=== PATIENT | male | born 1990 | race Asian ===

== ENCOUNTER 2019-02-27 09:01 | Emergency (ER) | payer OTHER ==
--- NOTE | 2019-02-27 10:02 | UC ---
Back Pain HPI - HPI Summary HPI Summary: 29-year-old male comes in with a chief complaint of low back pain. Started with some low back pain about a week ago. Yesterday he played badWhenSoon the pain got a lot worse. Pain is in the low back it does radiate a little bit to the right side but does not could on the buttocks or into either leg. No weakness no numbness no difficulty controlling urine or bowels. Pain is worse with twisting turning and bending. Extension is less painful. Flexion of the back is most painful maneuver. Patient is not tried any pain medications. Denies any abdominal pain or chest pain or shortness of breath. No urinary symptoms. - History of Current Complaint Chief Complaint: UCBackPain Stated Complaint: LOWER BACK INJURY Time Seen by Provider: 02/27/19 09:48 Pain Intensity: 8 - Allergies/Home Medications Allergies/Adverse Reactions: Allergies Allergy/AdvReac Type Severity Reaction Status Date / Time No Known Allergies Allergy Verified 02/27/19 09:20 PMH/Surg Hx/FS Hx/Imm Hx Previously Healthy: Yes - Surgical History Surgical History: None - Family History Known Family History: Positive: Non-Contributory - Social History Alcohol Use: None Substance Use Type: None Smoking Status (MU): Never Smoked Tobacco Review of Systems All Other Systems Reviewed And Are Negative: Yes Constitutional: Positive: Negative Skin: Positive: Negative Eyes: Positive: Negative ENT: Positive: Negative Respiratory: Positive: Negative Cardiovascular: Positive: Negative Gastrointestinal: Positive: Negative Genitourinary: Positive: Negative Motor: Positive: Other - SEE HPI Neurovascular: Positive: Negative Musculoskeletal: Positive: Other: - SEE HPI Neurological: Positive: Negative Psychological: Positive: Negative Is Patient Immunocompromised?: No Physical Exam Triage Information Reviewed: Yes Appearance: Well-Appearing, Well-Nourished, Pain Distress - MILD WITH BACK ROM Vital Signs: Initial Vital Signs Temp 97.5 F 02/27/19 09:18 Pulse 84 02/27/19 09:18 Resp 16 02/27/19 09:18 BP 96/69 02/27/19 09:18 Pulse Ox 97 02/27/19 09:18 Vital Signs Reviewed: Yes Eye Exam: Normal Eyes: Positive: Conjunctiva Clear Neck: Positive: Supple Respiratory: Positive: Lungs clear, Normal breath sounds, No respiratory distress Cardiovascular: Positive: RRR Musculoskeletal: Positive: Strength Intact, Other: - Low back is tender to palpation to include slightly to the right over the right SI joint. There is no tenderness down into the buttock and the sciatic distribution. Both legs have full range of motion full-strength. No sensation deficit. Neurological: Positive: Alert Psychological: Positive: Age Appropriate Behavior Skin Exam: Normal Back Pain Course/Dx - Course Course Of Treatment: Plan will be [id number] lidocaine patch and ibuprofen. Also discussed stretching and range of motion. Wrote a prescription for Flexeril to be used as needed I did let him know that I will make him tired to not drive with it. No neurologic deficit or radicular symptoms today. Patient will follow-up with regular doctor if not improved and get checked again sooner if worse or any questions or concerns. - Differential Dx/Diagnosis Provider Diagnosis: Low back pain Discharge - Sign-Out/Discharge Documenting (check all that apply): Patient Departure All imaging exams completed and their final reports reviewed: No Studies - Discharge Plan Condition: Stable Disposition: HOME Prescriptions: Cyclobenzaprine TAB* [Flexeril 10 MG TAB*] 10 mg PO TID PRN #10 tab MDD 3 PRN Reason: Pain Ibuprofen TAB* [Motrin TAB* 600 MG] 600 mg PO Q6H PRN #20 tab PRN Reason: Pain Patient Education Materials: Acute Low Back Pain (ED), Lower Back Exercises (ED ) Referrals: [facility] [Provider Group] [facility] [Outside] Additional Instructions: FOLLOW UP WITH YOUR DOCTOR IF NOT COMPLETELY IMPROVED. TAKE IBUPROFEN 600MG EVERY 6 HOURS NEEDED. TAKE FLEXERIL 10MG EVERY 8 HOURS NEEDED; THE FLEXERIL WILL MAKE YOU SLEEPY SO , DO NOT USE WHILE DRIVING. TRY LIDOCAINE 4% PATCHES IF HELPFUL. GET RECHECKED SOONER IF YOUR CONDITION WORSENS; PAIN, WEAKNESS, NUMBNESS, DIFFICULTY CONTROLLING BOWEL OR BLADDER OR ANY QUESTIONS OR CONCERNS. - Billing Disposition and Condition Condition: STABLE Disposition: Home
== END 2019-02-27 10:05 | disposition home or self-care (01) ==
LOC: UCEAST 09:01
DX: M54.5 Low back pain (principal)
CPT/HCPCS: 99202; G0463

== ENCOUNTER 2019-03-25 19:50 | Emergency (ER) | payer OTHER ==
--- NOTE | 2019-03-25 20:22 | ED ---
GI/ HPI - HPI Summary HPI Summary: Patient complains of concern for exposure to HIV. Patient states he had sex with that strange female yesterday, and then afterwards noticed that his gums started bleeding while brushing his teeth. Concerned that he may have been bleeding while kissing. Admits to protected vaginal intercourse. Unknown if partner has HIV or not. Denies any pain, injury or symptoms. Medical history is none. - History of Current Complaint Chief Complaint: EDExposureBodyFluid Time Seen by Provider: 03/25/19 20:21 Stated Complaint: POSS EXPOSURE TO HIV PER PT Hx Obtained From: Patient Onset/Duration: Started Hours Ago Current Severity: None Pain Intensity: 0 Associated Signs and Symptoms: Positive: Negative Aggravating Factor(s): Nothing - Allergy/Home Medications Allergies/Adverse Reactions: Allergies Allergy/AdvReac Type Severity Reaction Status Date / Time No Known Allergies Allergy Verified 03/25/19 19:53 PMH/Surg Hx/FS Hx/Imm Hx Endocrine/Hematology History: Denies: Hx Anticoagulant Therapy Cardiovascular History: Denies: Hx Pacemaker/ICD History: Denies: Hx Dialysis Sensory History: Denies: Hx Eye Prosthesis Opthamlomology History: Denies: Hx Legally Blind EENT History: Denies: Hx Deafness Infectious Disease History: No Infectious Disease History: Reports: Traveled Outside the [place] in Last 30 Days - [place] - Family History Known Family History: Positive: Non-Contributory - Social History Alcohol Use: None Substance Use Type: Reports: None Smoking Status (MU): Never Smoked Tobacco Review of Systems Constitutional: Negative Eyes: Negative ENT: Negative Cardiovascular: Negative Respiratory: Negative Gastrointestinal: Negative Genitourinary: Negative Musculoskeletal: Negative Skin: Negative Neurological: Negative Psychological: Normal All Other Systems Reviewed And Are Negative: Yes Physical Exam Triage Information Reviewed: Yes Vital Signs On Initial Exam: Initial Vitals Temp Pulse Resp BP Pulse Ox 98.4 F 66 15 122/85 98 03/25/19 19:52 03/25/19 19:52 03/25/19 19:52 03/25/19 19:52 03/25/19 19:52 Vital Signs Reviewed: Yes Appearance: Positive: Well-Appearing Skin: Positive: Warm Head/Face: Positive: Normal Head/Face Inspection Eyes: Positive: Normal ENT: Positive: Normal ENT inspection Neck: Positive: Supple Respiratory/Lung Sounds: Positive: Clear to Auscultation Cardiovascular: Positive: Normal Abdomen Description: Positive: Nontender Musculoskeletal: Positive: Normal Neurological: Positive: Normal Psychiatric: Positive: Normal AVPU Assessment: Alert - Cindy Coma Scale Best Eye Response: 4 - Spontaneous Best Motor Response: 6 - Obeys Commands Best Verbal Response: 5 - Oriented Coma Scale Total: 15 Diagnostics - Vital Signs Vital Signs Temp Pulse Resp BP Pulse Ox 03/25/19 19:52 98.4 F 66 15 122/85 98 - Laboratory Lab Statement: Any lab studies that have been ordered have been reviewed, and results considered in the medical decision making process. GIGU Course/Dx - Course Course Of Treatment: Patient complains of concern for exposure to HIV. Patient states he had sex with that strange female yesterday, and then afterwards noticed that his gums started bleeding while brushing his teeth. Concerned that he may have been bleeding while kissing. Admits to protected vaginal intercourse. Unknown if partner has HIV or not. Denies any pain, injury or symptoms. Medical history is none. Vital signs within normal limits. Patient advised protected sex with heterosexual partner involving vaginal intercourse is low risk for infection. Kissing is not a likely source of transmission.. Patient refused HIV testing at this time. Advised to follow-up with [facility] and infectious disease. Patient understands and approves of plan. - Diagnoses Provider Diagnoses: Concern about sexually transmitted disease in male without diagnosis Discharge - Sign-Out/Discharge Documenting (check all that apply): Patient Departure Patient Received Moderate/Deep Sedation with Procedure: No - Discharge Plan Condition: Stable Disposition: HOME Patient Education Materials: HIV Transmission (ED) Referrals: No Primary Care Phys,[facility] [Primary Care Provider] - Brianna WALDEN,Driss Zarate [Medical Doctor] - Additional Instructions: You may call [facility] Department at [phone] for further information on HIV transmission. You may also call infectious disease Dr. Reed for further information. - Billing Disposition and Condition Condition: STABLE Disposition: Home
[2019-03-25 21:17] VITALS: BP 113/66
== END 2019-03-25 21:16 | disposition home or self-care (01) ==
LOC: ED 19:50
DX: Z20.6 Contact with and (suspected) exposure to human immunodeficiency virus [HIV] (principal); K06.8 Other specified disorders of gingiva and edentulous alveolar ridge
CPT/HCPCS: 99281

== ENCOUNTER 2019-04-10 14:11 | Emergency (ER) | payer OTHER ==
[2019-04-10 15:05] LABS: Rapid Strep Molecular Negative (Negative)
[2019-04-10] MEDS: Dexamethasone TAB* 4 MG PO ONE (16:12)
--- NOTE | 2019-04-10 16:29 | ED ---
Respiratory - HPI Summary HPI Summary: The patient is a 29 y/o M presenting to [facility] with a chief complaint of difficulty breathing and wheezing this morning. He reports that over the past two weeks, he's had flu-like symptoms that resolved but seem to be returning as he woke up this morning and had trouble breathing normally and could hear himself wheezing. He additionally c/o generalized body aches and a headache. He denies any fever, rhinorrhea, sore throat, nausea, vomiting, or diarrhea. Currently, his symptoms are rated 3/10 in severity. He states he had asthma as a child but usually doesn't have symptoms now, and he doesn't have an inhaler at home. PMHx: asthma, seasonal allergies. Nonsmoker, rare EtOH, no substance use. Medications reviewed. Allergies noted. - History of Current Complaint Chief Complaint: EDThroatPain Stated Complaint: GENERAL ILLNESS PER PT Time Seen by Provider: 04/10/19 15:33 Hx Obtained From: Patient Onset/Duration: Lasting Weeks - resolved until this morning, Still Present Initial Severity: Mild Current Severity: Moderate Pain Intensity: 3 Character: Wheezing, Dyspnea at Rest Sputum Amount: None Aggravating Factor(s): Nothing Alleviating Factor(s): Nothing Associated Signs and Symptoms: Wheezing - Allergy/Home Medications Allergies/Adverse Reactions: Allergies Allergy/AdvReac Type Severity Reaction Status Date / Time No Known Allergies Allergy Verified 03/25/19 19:53 PMH/Surg Hx/FS Hx/Imm Hx Endocrine/Hematology History: Denies: Hx Anticoagulant Therapy Cardiovascular History: Denies: Hx Pacemaker/ICD Respiratory History: Reports: Hx Asthma History: Denies: Hx Dialysis Sensory History: Denies: Hx Eye Prosthesis - when child, Hx Legally Blind, Hx Deafness Opthamlomology History: Reports: Hx Contacts or Glasses Denies: Hx Eye Prosthesis, Hx Legally Blind EENT History: Denies: Hx Deafness - Surgical History Surgical History: None Surgery Procedure, Year, and Place: none Infectious Disease History: No Infectious Disease History: Reports: Traveled Outside the [place] in Last 30 Days - Family History Known Family History: Negative: Hypertension, Non-Contributory - Social History Alcohol Use: Rare Hx Substance Use: No Substance Use Type: Reports: None Hx Tobacco Use: No Smoking Status (MU): Never Smoked Tobacco Review of Systems Positive: Other - general body aches. Negative: Fever Negative: Sore Throat, Nasal Discharge Positive: Other - difficulty breathing, wheezing Negative: Vomiting, Diarrhea, Nausea Positive: Headache All Other Systems Reviewed And Are Negative: Yes Physical Exam - Summary Physical Exam Summary: Constitutional: Well-developed, Well-nourished, Alert. (-) Distressed Skin: Warm, Dry HENT: No pharyngeal erythema, No exudate, Normocephalic; Atraumatic Eyes: Conjunctiva normal Neck: Musculoskeletal ROM normal neck. (-) JVD, (-) Stridor, (-) Tracheal deviation Cardio: Rhythm regular, rate normal, Heart sounds normal; Intact distal pulses; The pedal pulses are 2+ and symmetric. Radial pulses are 2+ and symmetric. (-) Murmur Pulmonary/Chest wall: Effort normal. (-) Respiratory distress, (-) Wheezes, (-) Rales Abd: Soft, (-) tenderness, (-) Distension, (-) Guarding, (-) Rebound Musculoskeletal: (-) Edema Lymph: (-) Cervical adenopathy Neuro: Alert, Oriented x3 Psych: Mood and affect Normal Triage Information Reviewed: Yes Vital Signs On Initial Exam: Initial Vitals Temp Pulse Resp BP Pulse Ox 97.7 F 83 18 135/71 98 04/10/19 14:26 04/10/19 14:26 04/10/19 14:26 04/10/19 14:26 04/10/19 14:26 Vital Signs Reviewed: Yes Diagnostics - Vital Signs Vital Signs Temp Pulse Resp BP Pulse Ox 04/10/19 14:26 97.7 F 83 18 135/71 98 - Laboratory Lab Results: Lab Results 04/10/19 Range/Units 14:29 Group A Strep Rapid Negative (Negative) Lab Statement: Any lab studies that have been ordered have been reviewed, and results considered in the medical decision making process. - Radiology CXR Radiology Interpretation Completed By: Radiologist Summary of Radiographic Findings: Impression: No active cardiopulmonary disease. ED physician has reviewed this radiology report. Re-Evaluation - Re-Evaluation First Eval Re-Evaluation Time: 16:40 Comment: We discussed discharge home. Disposition - Course Course Of Treatment: Patient is here with mild cough and sore throat. On arrival, patient is overall well-appearing with a normal exam. Given patient's duration of symptoms, a chest x-ray was performed which was negative. Patient is given a dose of steroids here. Patient was discharged on an albuterol inhaler. - Diagnoses Provider Diagnoses: Wheezing, Sore throat Discharge ED - Sign-Out/Discharge Documenting (check all that apply): Patient Departure - Patient will be discharged home. Patient Received Moderate/Deep Sedation with Procedure: No - Discharge Plan Condition: Stable Disposition: HOME Prescriptions: Albuterol HFA INHALER* [Ventolin HFA Inhaler*] 4 - 6 puff INH Q4H PRN #1 mdi PRN Reason: Wheezing Patient Education Materials: Pharyngitis (ED), Wheezing (ED) Referrals: [facility] [Outside] - 2 Days Additional Instructions: Use your inhaler as prescribed. Follow up with your primary care provider in 2- 3 days. Return to the emergency department for any new or worsening symptoms. - Billing Disposition and Condition Condition: STABLE Disposition: Home - Attestation Statements Document Initiated by Jimena: Yes Documenting Scribe: Leslye Harden Provider For Whom Jimena is Documenting (Include Credential): Dr. Omar Nguyen MD Scribe Attestation: Leslye Durán scribed for Dr. Omar Nguyen MD on 04/12/19 at 1056. Scribe Documentation Reviewed: Yes Provider Attestation: The documentation as recorded by the Leslye ch accurately reflects the service I personally performed and the decisions made by me, Dr. Omar Nguyen MD Status of Scribwilfredo Document: Viewed
[2019-04-10 16:59] VITALS: BP 112/55
== END 2019-04-10 16:45 | disposition home or self-care (01) ==
LOC: ED 14:11
DX: J02.9 Acute pharyngitis, unspecified (principal); R06.2 Wheezing
CPT/HCPCS: 71046; 87651; 99282; J8540

== ENCOUNTER 2019-04-13 02:30 | Emergency (ER) | payer OTHER ==
[2019-04-13] MEDS ORDERED: Baclofen TAB* 20 MG PO ONE (02:46)
[2019-04-13] MEDS ORDERED: Simethicone TAB* 80 MG TAB.CHEW PO ONE (02:46)
--- NOTE | 2019-04-13 02:59 | ED ---
GI/ HPI - HPI Summary HPI Summary: The pt is a 29 yr old male presenting [facility] c/o burping and hiccupping beginning 2 days [facility] [facility]. He has been burping frequently for the past 2 days in intermittent episodes that last 1-2 hours. 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 He notes that he has taken antacids for the burping earlier. Pain severity is rated 0/10. No aggravating or alleviating factors noted. He denies any CP. - History of Current Complaint Chief Complaint: EDGeneral Stated Complaint: KEEP BURPING AFTER TAKING MEDICATION PER PT Hx Obtained From: Patient Onset/Duration: Started Days Ago, Still Present Timing: Intermittent, Lasting Hours - 1-2, Lasting Days Severity: Mild Current Severity: None Pain Intensity: 0 Associated Signs and Symptoms: Positive: Other: - pos - burping/hiccuping. Negative: Chest Pain - Allergy/Home Medications Allergies/Adverse Reactions: Allergies Allergy/AdvReac Type Severity Reaction Status Date / Time No Known Allergies Allergy Verified 03/25/19 19:53 PMH/Surg Hx/FS Hx/Imm Hx Endocrine/Hematology History: Denies: Hx Anticoagulant Therapy Cardiovascular History: Denies: Hx Pacemaker/ICD Respiratory History: Reports: Hx Asthma History: Denies: Hx Dialysis Sensory History: Reports: Hx Contacts or Glasses Denies: Hx Eye Prosthesis, Hx Legally Blind, Hx Deafness Opthamlomology History: Reports: Hx Contacts or Glasses Denies: Hx Eye Prosthesis, Hx Legally Blind - Surgical History Surgical History: None Surgery Procedure, Year, and Place: none Infectious Disease History: No Infectious Disease History: Reports: Traveled Outside the [place] in Last [place] Days - [place] - Family History Known Family History: Negative: Hypertension - Social History Alcohol Use: Rare Hx Substance Use: No Substance Use Type: Reports: None Hx Tobacco Use: No Smoking Status (MU): Never Smoked Tobacco Review of Systems Negative: Chest Pain Gastrointestinal: Other - pos - burping/hiccuping All Other Systems Reviewed And Are Negative: Yes Physical Exam - Summary Physical Exam Summary: Appearance: Well-appearing, Well-nourished, lying in bed comfortably Skin: Warm, dry, no obvious rash Eyes: sclera anicteric, no conjunctival pallor ENT: mucous membranes moist, pharynx appears normal Neck: Supple, nontender Respiratory: Clear to auscultation, no signs of respiratory distress Cardiovascular: Normal S1, S2. No murmurs. Normal distal pulses in tibial and radial bilaterally. Abdomen: Soft, nontender, normal active bowel sounds present Musculoskeletal: Normal, Strength/ROM Intact Neurological: A&Ox3, awake and alert, mentation is normal, speech is fluent and appropriate Psychiatric: affect is normal, does not appear anxious or depressed Triage Information Reviewed: Yes Vital Signs On Initial Exam: Initial Vitals Temp Pulse Resp BP Pulse Ox 97.9 F 62 18 117/88 98 04/13/19 02:34 04/13/19 02:34 04/13/19 02:34 04/13/19 02:34 04/13/19 02:34 Vital Signs Reviewed: Yes Diagnostics - Vital Signs Vital Signs Temp Pulse Resp BP Pulse Ox 04/13/19 02:34 97.9 F 62 18 117/88 98 - Laboratory Lab Statement: Any lab studies that have been ordered have been reviewed, and results considered in the medical decision making process. Re-Evaluation - Re-Evaluation First Eval Re-Evaluation Time: 04:04 Change: Improved Comment: Pt is feeling better, discharged discussed. GIGU Course/Dx - Course Course Of Treatment: The pt is a 29 yr old male presenting to [facility] c/o burping and hiccupping beginning today. He also denies CP. On review of chart patient was given decadron for his wheezing on prior visit, this medication is known to occasional cause hiccups. No test or imaging results to report. In the ED course pt was given 20 mg Lioresal PO and 80 mg Mylicon PO. Final Dx is hiccups. Pt will be discharged home with PCP follow up. Pt is agreeable with this plan. - Diagnoses Provider Diagnoses: Hiccup Discharge ED - Sign-Out/Discharge Documenting (check all that apply): Patient Departure - discharge Patient Received Moderate/Deep Sedation with Procedure: No - Discharge Plan Condition: Stable Disposition: HOME Prescriptions: Baclofen TAB* [Lioresal TAB*] 20 mg PO TID PRN #8 tab PRN Reason: Hiccups Patient Education Materials: Hiccups (ED) Referrals: No Primary Care Phys,[facility] [Primary Care Provider] - Additional Instructions: You are likely correct about the steroid medication triggering the hiccups. If you need a steroid for anything in the future, ask whoever prescribes it for you to avoid decadron. The hiccups should go away once the medication gets out of your system. - Billing Disposition and Condition Condition: STABLE Disposition: Home - Attestation Statements Document Initiated by Jimena: Yes Documenting Scribe: Richmond Sheets Provider For Whom Jimena is Documenting (Include Credential): Leodan Mason MD Scribe Attestation: IRichmond, scribed for Leodan Mason MD on 04/13/19 at 2058. Scribe Documentation Reviewed: Yes Provider Attestation: The documentation as recorded by the Richmond ch accurately reflects the service I personally performed and the decisions made by me, Leodan Mason MD Status of Scr[place] Document: Viewed
[2019-04-13 04:33] VITALS: BP 98/58
== END 2019-04-13 04:29 | disposition home or self-care (01) ==
LOC: ED 02:30
DX: T78.2XXA Anaphylactic shock, unspecified, initial encounter (principal); F17.210 Nicotine dependence, cigarettes, uncomplicated; K21.9 Gastro-esophageal reflux disease without esophagitis; F41.9 Anxiety disorder, unspecified; F32.9 Major depressive disorder, single episode, unspecified
CPT/HCPCS: 99282; A9270-GY